=== PATIENT | male | born 1945 | race Caucasian/White ===

== ENCOUNTER 2017-01-28 07:52 | Emergency (ER) | payer MEDICARE, OTHER ==
[~2017-01-28] VITALS: Ht 172.7 cm; Wt 80.0 kg
[~2017-01-28 07:52] MED LIST: CALC500T PO; CEPH-443 PO; IBUP-1542 PO; LEVO75TA65 PO; MECL12.5 PO; OMEG-135 PO
[2017-01-28 07:57] VITALS: Ht 172.7 cm; Wt 80.0 kg
[2017-01-28] MEDS ORDERED: KETOROLAC 30 MG INJ IM STA (08:21)
--- NOTE | 2017-01-28 08:33 | ERD ---
ER Documentation Chief Complaint Date/Time DATE: 01/28/17 TIME: 08:27 Chief Complaint back pain, and right forehead lump? insect bite? HPI This is a 71-year-old male presents to the emergency department today complaining of back pain since yesterday. Patient states this has happened to him in the past and it lasted for 2 weeks and it went away. States he has pain when he bends forward. States he has not taken any medication for pain. States he also has a bump on his head that he noted this morning. Denies hitting his head or falling. States he is unsure if he got bit by something. States it is not currently itching. Denies any fevers or chills, dysuria, loss of bowel or bladder control ROS All systems reviewed and are negative except as per history of present illness. Medications Home Meds Active Scripts Naproxen* (Naprosyn*) 500 Mg Tablet, 500 MG PO BID Y for PAIN AND/OR INFLAMMATION, #30 TAB Prov:DASHA JIMÉNEZ PA-C 01/28/17 Tramadol HCl (Tramadol HCl) 50 Mg Tablet, 50 MG PO Q4 Y for PAIN, #20 TAB Prov:DASHA JIMÉNEZ PA-C 01/28/17 Hydrocortisone* Topical (Hydrocortisone* Topical) 2.5%-28.3 Gm Cream..g., 1 APPLIC TOP BID, #1 TUB Prov:DASHA JIMÉNEZ PA-C 01/28/17 Cephalexin* (Keflex*) 500 Mg Capsule, 500 MG PO QID for 10 Days, CAP Prov:EILEEN MERRILL NP 04/10/15 Ibuprofen* (Ibuprofen*) 600 Mg Tablet, 600 MG PO Q6H Y for PA, #30 TAB Prov:EILEEN MERRILL NP 04/10/15 Meclizine Hcl* (Meclizine Hcl*) 12.5 Mg Tablet, 12.5 MG PO Q8H Y for DIZZINESS, #30 TAB Prov:MEGAN ROLLINS 04/29/14 Reported Medications Fish Oil* (Fish Oil*) 1,000 Mg Cap, 1000 MG PO DAILY, CAP 04/28/14 Calcium Carbonate* (Os-Eric 500*) 1 Tab Tablet, 1 TAB PO DAILY, TAB 04/28/14 Levothyroxine Sodium* (Levoxyl*) 75 Mcg Tablet, 75 MCG PO AC BREAKFAST, TAB 04/28/14 Allergies Allergies: Coded Allergies: No Known Drug Allergies (Verified Allergy, Mild, 01/28/17) PMhx/Soc Medical and Surgical Hx: pt denies Medical Hx, pt denies Surgical Hx History of Surgery: No Anesthesia Reaction: No Hx Neurological Disorder: No Hx Respiratory Disorders: No Hx Cardiac Disorders: No Hx Psychiatric Problems: No Hx Miscellaneous Medical Probl: No Hx Alcohol Use: No Hx Substance Use: No Hx Tobacco Use: No Physical Exam Vitals Vital Signs Date Time Temp Pulse Resp B/P Pulse Ox O2 Delivery O2 Flow Rate FiO2 01/28/17 07:57 98.1 60 18 147/80 99 Physical Exam Const: No acute distress Head: Right side of forehead with 3 cm hard lump with no fluctuance. Localized erythema. No purulent drainage. Eyes: Normal Conjunctiva ENT: Normal External Ears, Nose and Mouth. Neck: Full range of motion..~ No meningismus. Resp: Clear to auscultation bilaterally Cardio: Regular rate and rhythm, no murmurs Abd: Soft, non tender, non distended. Normal bowel sounds Skin: No petechiae or rashes Back: No midline tenderness. Bilateral paraspinal tenderness. No CVA tenderness. Ext: No cyanosis, or edema Neur: Awake and alert Psych: Normal Mood and Affect Results 24 hrs Laboratory Tests Test 01/28/17 08:43 Bedside Urine pH (LAB) 7.0 Bedside Urine Protein (LAB) Trace Bedside Urine Glucose (UA) Negative Bedside Urine Ketones (LAB) Negative Bedside Urine Blood Negative Bedside Urine Nitrite (LAB) Negative Bedside Urine Leukocyte Esterase (L Negative Current Medications Medications (Trade) Dose Ordered Sig/Sultana Route PRN Reason Start Time Stop Time Status Last Admin Dose Admin Ketorolac Tromethamine (Toradol) 30 mg ONCE STAT IM 01/28/17 08:21 01/28/17 08:23 DC 01/28/17 08:32 Procedures/MDM This is a 70-year-old male presents to the emergency department today complaining of low back pain that started yesterday and a bump on his forehead that he noticed this morning. Patient is afebrile and otherwise well- appearing. He is ambulating without any acute distress. He has no midline tenderness and denied any fall or trauma and I do not feel the patient requires images at this time. He is afebrile and otherwise well-appearing. He has no loss of bowel or bladder control. Low suspicion for cauda equina or abscess I did obtain a UA UA negative for infection or hematuria. Low suspicion for pyelonephritis or nephrolithiasis. Patient was also complaining of a bump on his forehead that he noticed this morning. The area is approximately 3 cm in width. Patient states he noted it this morning. There is no area of fluctuance although there is localized erythema. I have low suspicion that this is an abscess. Given that the patient just noticed it this morning. I have low suspicion due to the size that it has grown that quickly and is a tumor or mass. There does appear to be a small area which may show an insect bite. Patient will be given a prescription for hydrocortisone cream to apply. Patient was given Toradol here in the emergency department. He will be given a short course of tramadol and Naprosyn for home At this time the patient is stable for discharge and outpatient management. Patient should follow up with their PCP in the next 1-2 days. They may return to the emergency department sooner for any persistent or worsening of symptoms. Patient understood and agreed with the plan. Departure Diagnosis: Primary Impression: Back pain Back pain location: low back pain Chronicity: acute Back pain laterality: bilateral Sciatica presence: without sciatica Qualified Code: M54.5 - Acute bilateral low back pain without sciatica Additional Impression: Bump Condition: DASHA Chester PA-C Jan 28, 2017 08:32
[2017-01-28 08:37] LABS: URINE BLOOD (Dip) POC Negative (NEGATIVE)
[2017-01-28] MEDS ORDERED: HC30CR25 TOP (09:02)
[2017-01-28] MEDS ORDERED: NAPR-260 PO (09:03)
[2017-01-28] MEDS ORDERED: TRAM50TA2 PO (09:03)
[2017-02-08 16:17] LABS: URINE BLOOD (Dip) POC Negative (NEGATIVE)
== END 2017-01-28 09:27 | disposition home or self-care (01) ==
LOC: FTE 07:52
DX: M54.5 Low back pain (principal)
CPT/HCPCS: 81003; J1885; 96372

== ENCOUNTER 2017-02-06 16:02 | Emergency (ER) | payer MEDICARE, OTHER ==
[~2017-02-06] VITALS: Ht 177.8 cm; Wt 84.0 kg
[~2017-02-06 16:02] MED LIST changes: +HC30CR25 TOP; +NAPR-260 PO; +TRAM50TA2 PO
[2017-02-06 16:14] VITALS: Ht 177.8 cm; Wt 84.0 kg
--- NOTE | 2017-02-06 19:39 | RADRPT ---
PROCEDURE: XR Chest. CLINICAL INDICATION: Cough TECHNIQUE: Single frontal chest x-ray. COMPARISON: None. FINDINGS: The lungs are clear. No focal opacification is seen. The cardiomediastinal silhouette is unremarka ble. The osseous structures are unremarkable. IMPRESSION: 1. There is no acute cardiopulmonary process. RPTAT: PP .Aleksandar Baumann MD, MD Date Time Electronically viewed and signed by .Aleksandar Baumann MD, MD on 02/06/2017 19:38 .B/
[2017-02-06] MEDS ORDERED: AZIT250T94 PO (19:54)
[2017-02-06] MEDS ORDERED: BENZ100C70 PO (19:54)
[2017-02-06 20:11] VITALS: BP 180/83; PULSE 60; RESP 18
--- NOTE | 2017-02-06 20:27 | ERD ---
ER Documentation Chief Complaint Date/Time DATE: 02/06/17 TIME: 20:22 Chief Complaint FEVER , COUGH, ST X 1 DAY HPI 71-year-old male patient with no significant past medical history presents the ED complaining of fever cough, sore throat that started yesterday but has been intermittently going on for the last month. Denies any chest pain, shortness of breath, wheezing, abdominal pain, fever, chills, nausea, vomiting. ROS All systems reviewed and are negative except as per history of present illness. Medications Home Meds Active Scripts Benzonatate* (Tessalon Perle*) 100 Mg Capsule, 100 MG PO Q8H Y for COUGH, #20 CAP Prov:DOLORES FERNÁNDEZ PA-C 02/06/17 Azithromycin* (Zithromax*) 250 Mg Tablet, 250 MG PO .ZPACK DIRECTED, #6 TAB TAKE 500 MG (2 TABS) THE FIRST DAY THEN 250 MG (1 TAB) DAYS 2-5 Prov:DOLORES FERNÁNDEZ PA-C 02/06/17 Naproxen* (Naprosyn*) 500 Mg Tablet, 500 MG PO BID Y for PAIN AND/OR INFLAMMATION, #30 TAB Prov:DASHA JIMÉNEZ PA-C 01/28/17 Tramadol HCl (Tramadol HCl) 50 Mg Tablet, 50 MG PO Q4 Y for PAIN, #20 TAB Prov:DASHA JIMÉNEZ PA-C 01/28/17 Hydrocortisone* Topical (Hydrocortisone* Topical) 2.5%-28.3 Gm Cream..g., 1 APPLIC TOP BID, #1 TUB Prov:DASHA JIMÉNEZ PA-C 01/28/17 Cephalexin* (Keflex*) 500 Mg Capsule, 500 MG PO QID for 10 Days, CAP Prov:EILEEN MERRILL NP 04/10/15 Ibuprofen* (Ibuprofen*) 600 Mg Tablet, 600 MG PO Q6H Y for PA, #30 TAB Prov:EILEEN MERRILL NP 04/10/15 Meclizine Hcl* (Meclizine Hcl*) 12.5 Mg Tablet, 12.5 MG PO Q8H Y for DIZZINESS, #30 TAB Prov:MEGAN ROLLINS 04/29/14 Reported Medications Fish Oil* (Fish Oil*) 1,000 Mg Cap, 1000 MG PO DAILY, CAP 04/28/14 Calcium Carbonate* (Os-Eric 500*) 1 Tab Tablet, 1 TAB PO DAILY, TAB 04/28/14 Levothyroxine Sodium* (Levoxyl*) 75 Mcg Tablet, 75 MCG PO AC BREAKFAST, TAB 04/28/14 Allergies Allergies: Coded Allergies: No Known Drug Allergies (Verified Allergy, Mild, 02/06/17) PMhx/Soc Medical and Surgical Hx: pt denies Medical Hx, pt denies Surgical Hx History of Surgery: No Anesthesia Reaction: No Hx Neurological Disorder: No Hx Respiratory Disorders: No Hx Cardiac Disorders: No Hx Psychiatric Problems: No Hx Miscellaneous Medical Probl: No Hx Alcohol Use: Yes Hx Substance Use: No Hx Tobacco Use: No Smoking Status: Never smoker Physical Exam Vitals Vital Signs Date Time Temp Pulse Resp B/P Pulse Ox O2 Delivery O2 Flow Rate FiO2 02/06/17 20:11 60 18 180/83 99 Room Air 02/06/17 16:14 97.9 58 18 157/73 98 Physical Exam Const: [id number], well-nourished. In no acute distress. Head: Atraumatic, normocephalic Eyes: Normal Conjunctiva without injection. No purulent discharge. PERRL. EOMI ENT: Normal external ear. Ear canal without erythema. Tympanic membrane pearly bowie without effusion or bulging. Nasal canal clear with normal turbinates. Moist oropharynx without tonsillar exudates. Non-erythematous pharynx. Uvula midline. No drooling. No trismus. Neck: Full range of motion. No meningismus. No cervical lymphadenopathy. Resp: Clear to auscultation bilaterally. No wheezing, rhonchi, rales, or crackles. No accessory muscle use. No retractions. Cardio: Regular rate and rhythm. No murmurs, rubs or gallops. Abd: Soft, non tender, non distended. Normal bowel sounds. No palpable masses. No rebound tenderness. No guarding. Skin: No petechiae or rashes Back: No midline tenderness. No CVA tenderness. Ext: No cyanosis, or edema. Neur: Awake and alert. Psych: Normal Mood and Affect Procedures/MDM 71-year-old male patient with no significant past medical history presents the ED complaining of fever, cough, sore throat that started yesterday. Patient is afebrile and nontoxic-appearing. Patient has normal vital signs. Patient was further evaluated with a chest x-ray. Chest x-ray shows no evidence of pneumonia, pneumothorax, pleural effusion. Patient's physical exam include lungs which were clear to auscultation and a normal pulse oximetry. There is a low suspicion for pneumonia, pneumothorax, mononucleosis, pulmonary embolism, epiglottitis, otitis media, otitis externa, viral/strep pharyngitis, sinusitis, peritonsillar abscess, mastoiditis, retropharyngeal abscess, meningitis, sepsis , acute abdomen or other emergent conditions. Discharge medications: Zithromax, Tessalon Perles Patient was instructed to return to the ED for any new or worsening symptoms. They should otherwise follow up with the primary care provider within 1-2 days. The patient's questions were answered at the time of discharge. Patient understood and agreed with discharge management. Departure Diagnosis: Primary Impression: Cough Condition: Stable Patient Instructions: Bronchitis, Antiobiotic Treatment (Adult) Referrals: PENDING SALE TO [facility] YOU HAVE RECEIVED A MEDICAL SCREENING EXAM AND THE RESULTS INDICATE THAT YOU DO NOT HAVE A CONDITION THAT REQUIRES URGENT TREATMENT IN THE EMERGENCY DEPARTMENT. FURTHER EVALUATION AND TREATMENT OF YOUR CONDITION CAN WAIT UNTIL YOU ARE SEEN IN YOUR DOCTORS OFFICE WITHIN THE NEXT 1-2 DAYS. IT IS YOUR RESPONSIBILITY TO MAKE AN APPOINTMENT FOR FOLOW-UP CARE. IF YOU HAVE A PRIMARY DOCTOR --you should call your primary doctor and schedule an appointment IF YOU DO NOT HAVE A PRIMARY DOCTOR YOU CAN CALL OUR PHYSICIAN REFERRAL HOTLINE AT IF YOU CAN NOT AFFORD TO SEE A PHYSICIAN YOU CAN CHOSE FROM THE FOLLOWING PENDING SALE TO [facility] [address] [facility] [address] [facility] [facility] [address] [facility] [address] [facility] [address] [facility]. [facility]. [address] [facility] [facility] YOU HAVE RECEIVED A MEDICAL SCREENING EXAM AND THE RESULTS INDICATE THAT YOU DO NOT HAVE A CONDITION THAT REQUIRES URGENT TREATMENT IN THE EMERGENCY DEPARTMENT. FURTHER EVALUATION AND TREATMENT OF YOUR CONDITION CAN WAIT UNTIL YOU ARE SEEN IN YOUR DOCTORS OFFICE WITHIN THE NEXT 1-2 DAYS. IT IS YOUR RESPONSIBILITY TO MAKE AN APPOINTMENT FOR FOLOW-UP CARE. IF YOU HAVE A PRIMARY DOCTOR --you should call your primary doctor and schedule and appointment IF YOU DO NOT HAVE A PRIMARY DOCTOR YOU CAN CALL OUR PHYSICIAN REFERRAL HOTLINE AT . IF YOU CAN NOT AFFORD TO SEE A PHYSICIAN YOU CAN CHOSE FROM THE FOLLOWING [facility] INSTITUTIONS: [facility] [address] [place] [address] [facility] [address] [place] [address] [facility] [address] [place] [address] [facility]CIAL[facility] Additional Instructions: Call your primary care doctor TOMORROW for an appointment during the next 3 days. See the doctor sooner or return here if your condition worsens before your appointment time - fever, chest pain, shortness of breath, wheezing, vomiting, etc. DOLORES FERNÁNDEZ PA-C Feb 06, 2017 20:27
== END 2017-02-06 20:13 | disposition home or self-care (01) ==
LOC: FTE 16:02
DX: R05 Cough (principal)
CPT/HCPCS: 71010

== ENCOUNTER 2017-06-28 00:27 | Emergency (ER) | payer MEDICARE, OTHER ==
[~2017-06-28] VITALS: Ht 172.7 cm; Wt 83.5 kg
[~2017-06-28 00:27] MED LIST changes: +AZIT250T94 PO; +BENZ100C70 PO
[2017-06-28 01:19] VITALS: Ht 172.7 cm; Wt 83.5 kg
[2017-06-28] MEDS ORDERED: ASPIRIN 325 MG TAB PO STA (01:46)
--- NOTE | 2017-06-28 02:19 | RADRPT ---
PROCEDURE: XR Chest. CLINICAL INDICATION: Chest pain. TECHNIQUE: AP Portable chest. COMPARISON: CHEST 02/06/2017; JOHNNIE CHEST 04/28/2014 FINDINGS: The cardiomediastinal silhouette is normal. The aorta is normal. No focal consolidation, pleural eff usion or pneumothorax is seen. The osseous structures are intact. IMPRESSION: No radiographic evidence of acute cardiopulmonary disease. Physician Kofi Date Time Electronically viewed and signed by Seema Frazier Physician on 06/28/2017 02:19 CS/
[2017-06-28 02:40] LABS: BASOPHIL # 0.1 10^3/ul (0.0-0.1); BASOPHILS % 0.8 % (0.0-2.0); EOSINOPHILS # 0.2 10^3/ul (0.0-0.5); EOSINOPHILS % 4.1 % (0.0-7.0); HEMATOCRIT 39.4 % (42.0-52.0); HEMOGLOBIN 13.6 g/dl (14.0-18.0); LYMPHOCYTES # 1.8 10^3/ul (0.8-2.9); LYMPHOCYTES % 30.6 % (15.0-51.0); MEAN CORPUSCULAR HEMOGLOBIN 31.9 pg (29.0-33.0); MEAN CORPUSCULAR HGB CONC 34.5 g/dl (32.0-37.0); MEAN CORPUSCULAR VOLUME 92.3 fl (82.0-101.0); MEAN PLATELET VOLUME 10.2 fl (7.4-10.4); MONOCYTE # 0.5 10^3/ul (0.3-0.9); MONOCYTES % 7.8 % (0.0-11.0); NEUTROPHIL # 3.3 10^3/ul (1.6-7.5); NEUTROPHILS % 56.5 % (39.0-77.0); PLATELET COUNT 158 10^3/UL (140-415); RED BLOOD COUNT 4.27 10^6/ul (4.70-6.10); RED CELL DISTRIBUTION WIDTH 12.4 % (11.5-14.5); WHITE BLOOD COUNT 5.9 10^3/ul (4.8-10.8)
[2017-06-28 03:01] LABS: ANION GAP 13 (8-16); BLOOD UREA NITROGEN 21 mg/dl (7-20); CALCIUM 8.4 mg/dl (8.4-10.2); CARBON DIOXIDE 28 mmol/L (21-31); CHLORIDE 106 mmol/L (97-110); CREATININE 0.91 mg/dl (0.61-1.24); GLUCOSE 128 mg/dl (70-220); POTASSIUM 3.8 mmol/L (3.5-5.1); SODIUM 143 mmol/L (135-144)
[2017-06-28 03:13] LABS: B-TYPE NATRIURETIC PEPTIDE 168 PG/ML (0-125)
[2017-06-28 03:17] LABS: TROPONIN-I < 0.012 ng/ml (0.00-0.12)
[2017-06-28 04:58] LABS: URINE BLOOD (Dip) POC Negative (NEGATIVE)
[2017-06-28] MEDS ORDERED: FENTAnyl 50 MCG/ML VIAL IV ONE (05:30)
[2017-06-28] MEDS ORDERED: HYDROCODONE/APAP (5/325) TAB PO ONE (06:30)
--- NOTE | 2017-06-28 06:32 | RADRPT ---
PROCEDURE: CT cervical spine without contrast. CLINICAL INDICATION: Pain. Radiculopathy. TECHNIQUE: Axial imaging was obtained through the cervical spine using a multi-slice CT scanner. S barrow neurological instituteda CT scan of the cervical spine without contrast protocols were performed. CTDI: 22.35 and DLP: 632.71. One or more of the following dose reduction techniques were used: - Automated exposure control. - Adjustment of the mA and/or kV according to patient size. Use of iterative reconstruction technique. Dicom images are available COMPARISON: None. FINDINGS: There are no acute fractures. There is reversal of the normal cervical lordosis. No evidence of subl uxations. 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 Additional mild degenerate disease and degenerative enthesopathy involving the C3-4 disc with left C3-4 neural foraminal narrowing. The no other neural foraminal narrowing or central spinal canal zully nosis. There is degenerative changes of the right and left C3-C7 lateral masses. There is a 6 mm sclerotic density involving the posterior mid left fourth rib likely represents a b one island. Blastic metastasis cannot be excluded. No other evidence of osteoblastic/osteolytic lesi ons. There is mild chronic bilateral ethmoid sinus disease. There is no evidence of prevertebral sof t tissue swelling. Those portions of the the upper lung pleural and airway visualized are unremarkab le. There is atherosclerotic vascular disease present. IMPRESSION: 1. No evidence acute fractures or subluxations. 2. Degenerative changes, central spinal canal stenosis or neural foraminal narrowing as described a bi. 3. 6 mm sclerotic density involving the posterior left fourth rib likely representing a bone island however blastic metastasis cannot be excluded and recommend confirmation and consideration of bone scan for further evaluation. RPTAT:AAJJ Physician Jazmin Date Time Electronically viewed and signed by Physician Jazmin on 06/28/2017 06:32 /
[2017-06-28 07:17] VITALS: BP 145/66; PULSE 68; RESP 20; TEMP 98.3
[2017-06-28] MEDS ORDERED: HYDR-906 PO (07:17)
[2017-06-28] MEDS ORDERED: NAPR-688 PO (07:17)
--- NOTE | 2017-06-28 07:18 | RADRPT ---
PROCEDURE: CT Brain without contrast. CLINICAL INDICATION: Balance problems TECHNIQUE: CT scan of the brain was performed on a multidetector high-resolution CT scan. Axial im aging was obtained of the brain without contrast administration. Coronal and sagittal reformatted i mages were obtained from the axial source images. Standard CT scan of the head without contrast prot ocols were performed. The total exam CTDI equals 43.48 mGy and the total exam DLP equals 720.23 mGy-cm. One or more of the following dose reduction techniques were used: - Automated exposure control. - Adjustment of the mA and/or kV according to patient size. Use of iterative reconstruction technique. Dicom images are available COMPARISON: CT brain 04/28/2014 FINDINGS: The ventricular system and peripheral CSF spaces are proportionate prominent consistent with mild ge neralized cerebral volume loss. Negative for intracranial masses hemorrhages or midline shift. The g ray-white matter junction is unremarkable. Mild nonspecific periventricular deep white matter change s consistent with chronic microvascular ischemic disease. There is atherosclerotic heart plaque invo lving the cavernous carotid arteries and distal right vertebral artery. The bones and calvarium are intact. There is chronic bilateral ethmoid sinus disease. Remainder the visualized paranasal sinuses are unremarkable. Chronic mastoiditis. IMPRESSION: 1. No evidence of intracranial masses hemorrhages or midline shift. 2. Mild generalized cerebral volume loss and nonspecific chronic microvascular ischemic disease. RPTAT:AAJJ Physician Jazmin Date Time Electronically viewed and signed by Physician Jazmin on 06/28/2017 07:18 BM/
--- NOTE | 2017-06-28 07:28 | ERD ---
ER Documentation Chief Complaint Chief Complaint BIB SELF, CC: WOKE UP, 5 PM , L SHOULDER PAIN, NO CP, NO SOB, NO TRAUMA HPI 72-year-old male presents with shoulder pain that awoke him at 5 AM. His left upper shoulder/trapezius area. Denied chest pain or shortness of breath. Has not had pain like this before. Does have hypertension. No fever or chills. Pain is made worse occasionally by certain neck movements. His headache but states that he occasionally does feel unsteady on his feet. ROS All systems reviewed and are negative except as per history of present illness. Medications Home Meds Active Scripts Naproxen* (Naproxen*) 500 Mg Tablet, 500 MG PO BID Y for PAIN, #20 TAB Prov:ELBA INMAN DO 06/28/17 Hydrocodone/Acetaminophen (Biddle 5-325 Tablet) 1 Each Tablet, 1 EACH PO Q6, #20 TAB Prov:HENNYELBA DO 06/28/17 Benzonatate* (Tessalon Perle*) 100 Mg Capsule, 100 MG PO Q8H Y for COUGH, #20 CAP Prov:DOLORES FERNÁNDEZ PA-C 02/06/17 Azithromycin* (Zithromax*) 250 Mg Tablet, 250 MG PO .ZPACK DIRECTED, #6 TAB TAKE 500 MG (2 TABS) THE FIRST DAY THEN 250 MG (1 TAB) DAYS 2-5 Prov:DOLORES FERNÁNDEZ PA-C 02/06/17 Naproxen* (Naprosyn*) 500 Mg Tablet, 500 MG PO BID Y for PAIN AND/OR INFLAMMATION, #30 TAB Prov:DASHA JIMÉNEZ PA-C 01/28/17 Tramadol HCl (Tramadol HCl) 50 Mg Tablet, 50 MG PO Q4 Y for PAIN, #20 TAB Prov:DASHA JIMÉNEZ PA-C 01/28/17 Hydrocortisone* Topical (Hydrocortisone* Topical) 2.5%-28.3 Gm Cream..g., 1 APPLIC TOP BID, #1 TUB Prov:DASHA JIMÉNEZ PA-C 01/28/17 Cephalexin* (Keflex*) 500 Mg Capsule, 500 MG PO QID for 10 Days, CAP Prov:EILEEN MERRILL NP 04/10/15 Ibuprofen* (Ibuprofen*) 600 Mg Tablet, 600 MG PO Q6H Y for PA, #30 TAB Prov:EILEEN MERRILL DELIVERY MAN 04/10/15 Meclizine Hcl* (Meclizine Hcl*) 12.5 Mg Tablet, 12.5 MG PO Q8H Y for DIZZINESS, #30 TAB Prov:MEGAN ROLLINS 04/29/14 Reported Medications Fish Oil* (Fish Oil*) 1,000 Mg Cap, 1000 MG PO DAILY, CAP 04/28/14 Calcium Carbonate* (Os-Eric 500*) 1 Tab Tablet, 1 TAB PO DAILY, TAB 04/28/14 Levothyroxine Sodium* (Levoxyl*) 75 Mcg Tablet, 75 MCG PO AC BREAKFAST, TAB 04/28/14 Allergies Allergies: Coded Allergies: No Known Drug Allergies (Verified Allergy, Mild, 02/06/17) PMhx/Soc Medical and Surgical Hx: pt denies Medical Hx, pt denies Surgical Hx History of Surgery: No Anesthesia Reaction: No Hx Neurological Disorder: No Hx Respiratory Disorders: No Hx Cardiac Disorders: No Hx Psychiatric Problems: No Hx Miscellaneous Medical Probl: No Hx Alcohol Use: No Hx Substance Use: No Hx Tobacco Use: No Smoking Status: Never smoker Physical Exam Vitals Vital Signs Date Time Temp Pulse Resp B/P Pulse Ox O2 Delivery O2 Flow Rate FiO2 06/28/17 07:17 98.3 68 20 145/66 98 Room Air 06/28/17 06:11 98.0 60 16 158/85 98 Room Air 06/28/17 03:08 97.7 54 17 119/57 98 Room Air 06/28/17 02:11 98.5 55 18 145/75 97 Room Air 06/28/17 01:19 98.5 71 18 160/78 100 Physical Exam Const: [] No distress Head: Atraumatic Eyes: Normal Conjunctiva EOMI, PERRLA ENT: Normal External Ears, Nose and Mouth. Neck: Full range of motion..~ No meningismus. Resp: Clear to auscultation bilaterally Cardio: Regular rate and rhythm, no murmurs Abd: Soft, non tender, non distended. 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 Psych: Normal Mood and Affect Result Diagram: 06/28/17 0157 06/28/17 0157 Results 24 hrs Laboratory Tests Test 06/28/17 01:57 06/28/17 04:57 White Blood Count 5.910^3/ul Red Blood Count 4.2710^6/ul Hemoglobin 13.6g/dl Hematocrit 39.4% Mean Corpuscular Volume 92.3fl Mean Corpuscular Hemoglobin 31.9pg Mean Corpuscular Hemoglobin Concent 34.5g/dl Red Cell Distribution Width 12.4% Platelet Count 70928^3/UL Mean Platelet Volume 10.2fl Neutrophils % 56.5% Lymphocytes % 30.6% Monocytes % 7.8% Eosinophils % 4.1% Basophils % 0.8% Nucleated Red Blood Cells % 0.0/100WBC Neutrophils # 3.310^3/ul Lymphocytes # 1.810^3/ul Monocytes # 0.510^3/ul Eosinophils # 0.210^3/ul Basophils # 0.110^3/ul Nucleated Red Blood Cells # 0.010^3/ul Sodium Level 143mmol/L Potassium Level 3.8mmol/L Chloride Level 106mmol/L Carbon Dioxide Level 28mmol/L Anion Gap 13 Blood Urea Nitrogen 21mg/dl Creatinine 0.91mg/dl Glucose Level 128mg/dl Calcium Level 8.4mg/dl Troponin I < 0.012ng/ml B-Type Natriuretic Peptide 168PG/ML Bedside Urine pH (LAB) 7.5 Bedside Urine Protein (LAB) Negative Bedside Urine Glucose (UA) Negative Bedside Urine Ketones (LAB) Negative Bedside Urine Blood Negative Bedside Urine Nitrite (LAB) Negative Bedside Urine Leukocyte Esterase (L Negative Current Medications Medications (Trade) Dose Ordered Sig/Sultana Route PRN Reason Start Time Stop Time Status Last Admin Dose Admin Aspirin (Aspirin) 325 mg ONCE STAT PO 06/28/17 01:46 06/28/17 01:47 DC 06/28/17 02:06 Fentanyl (Sublimaze) 25 mcg ONCE ONCE IV 06/28/17 05:30 06/28/17 05:31 DC 06/28/17 05:23 Acetaminophen/ Hydrocodone Bitart (Biddle (5/325)) 1 tab ONCE ONCE PO 06/28/17 06:30 06/28/17 06:31 DC 06/28/17 07:12 Procedures/MDM Elderly with strange migrating pain pattern. Initially had the neck pain which went away with 4 mg of morphine. Pain was suspicious for possible radicular pain cervical vertebrae. CT was suspicious for incidental finding which may be a blastic lesion. The CT and going to give the patient a copy of it to take with him to his primary care doctor to get adequate follow-up. He then complained of bilateral leg pain that happened suddenly while he was laying in bed. He had no low back pain and the pain was a burning sensation on both legs. No signs of vascular insufficiency with bilateral equal pulses. He then had no pain after he was given fentanyl. He will get up to go to the bathroom and then he had low back pain only. Inconsistent migratory pain pattern. No signs of cardiac ischemia the patient has risk factors. Going to discharge her with instructions see his primary care doctor next 2 or 3 days and strict return precautions the ER EKG interpretation: Bradycardia rate of 51, normal axis, no ST or T-wave changes concerning for acute ischemia, normal intervals. Abnormal support analyst interpretation: Normal sinus rhythm arrhythmia Chest x-ray interpretation: I see no acute process, no pulmonary edema, no wide mediastinum, no infiltrates, no fractures CT brain interpretation: I see no acute process. 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 No acute fracture or subluxation. Departure Diagnosis: Primary Impression: Bilateral leg pain Additional Impression: Neck pain Condition: Stable Patient Instructions: Possible Causes of Low Back or Leg Pain, Neck Pain, No Trauma Additional Instructions: Call your primary care doctor TOMORROW for an appointment during the next 1-2 days.See the doctor sooner or return here if your condition worsens before your appointment time. ELBA INMAN DO Jun 28, 2017 07:28
== END 2017-06-28 07:26 | disposition home or self-care (01) ==
LOC: E/R 00:27
DX: M79.605 Pain in left leg (principal); M79.604 Pain in right leg; R42 Dizziness and giddiness
CPT/HCPCS: 36415; 70450; 71010; 72125; 80048; 81003; 83880; 84484; 85025; 96374; 99285; J3010; 93005